=== PATIENT | male | born 1980 | race Caucasian/White ===

== ENCOUNTER 2024-10-16 10:46 | Emergency (ER) | payer BC, OTHER ==
[2024-10-16] MEDS: Ketorolac 30 MG/ML SDV IM ONE (11:28)
[2024-10-16] MEDS: Take Home: Clindamycin HCl 150 MG, 12 Cap Pack PO ONE (11:29)
[2024-10-16] MEDS: Take Home: Acetaminophen/oxyCODONE 325-5 MG, 5 Tab Pack PO ONE (11:29)
[2024-10-16] MEDS: Ketorolac 30 MG/ML SDV IVPUSH ONE (11:31)
== END 2024-10-16 11:37 | disposition home or self-care (01) ==
LOC: DL.ED 10:46
DX: K08.89 Other specified disorders of teeth and supporting structures (principal)
CPT/HCPCS: 96372; 99282; A9270; J1885

== ENCOUNTER 2024-10-17 20:48 | Emergency (ER) | payer OTHER ==
[2024-10-17 21:32] LABS: BASOPHILS PERCENT AUTO 0.6 % (0.0-1.0); EOSINOPHILS PERCENT AUTO 4.2 % (1.0-3.0); HEMATOCRIT 45.4 % (40.0-54.0); HEMOGLOBIN 15.6 g/dL (14.0-18.0); MEAN CORPUSCULAR HEMOGLOBIN 29.5 pg (27.0-34.0); MEAN CORPUSCULAR HGB CONC 34.4 g/dL (33.0-35.0); MONOCYTES PERCENT AUTO 7.2 % (2-8); PLATELET COUNT,PLT 204 10^3/uL (150-450); RED BLOOD CELL COUNT 5.28 10^6/uL (4.6-6.2); WHITE BLOOD CELL COUNT,WBC 7.9 10^3/uL (5.0-10.0)
[2024-10-17 21:54] LABS: ALANINE AMINOTRANSFERASE,ALT 58 U/L (16-63); ALBUMIN 3.3 g/dL (3.4-5.0); ALKALINE PHOSPHATASE 138 U/L (46-116); ANION GAP 11.3 mEq/L (7-13); ASPARTATE AMNIOTRANSFERASE,AST 25 U/L (15-37); BILIRUBIN TOTAL 0.4 mg/dL (0.2-1.0); BLOOD UREA NITROGEN,BUN 18 mg/dL (7-18); CALCIUM 9.5 mg/dL (8.5-10.1); CARBON DIOXIDE,CO2 29 mmol/L (21-32); CHLORIDE,CL 99 mmol/L (98-107); POTASSIUM,K 4.3 mmol/L (3.5-5.1); PROTEIN TOTAL,TP 7.1 g/dL (6.4-8.2); SODIUM,NA 135 mmol/L (136-145)
[2024-10-17 22:11] LABS: A/G RATIO 0.87; ESTIMATED GFR 77 mL/min (>=60); GLUCOSE RANDOM 481 mg/dL (70-99)
[2024-10-17] MEDS: Sodium Chloride 0.9% 2,000 ML IV ONE (23:07)
[2024-10-17] MEDS: Ketorolac 30 MG/ML SDV IVPUSH ONE (23:07)
== END 2024-10-18 00:23 | disposition home or self-care (01) ==
LOC: DL.ED 20:48
DX: K08.89 Other specified disorders of teeth and supporting structures (principal); E11.9 Type 2 diabetes mellitus without complications; F17.210 Nicotine dependence, cigarettes, uncomplicated
CPT/HCPCS: 36415; 80053; 82947; 85025; 96361; 96374; 99283; 99283-25; J1885; J7030